=== PATIENT | female | born 1940 | race African-American/Black ===

== ENCOUNTER 2024-06-28 11:12 | Inpatient (IN) | payer OTHER ==
--- OUTSIDE RECORDS SUMMARY | 2024-06-28 11:14 | XMS REPORT | Continuity of Care Document ---
Author Name Unknown Address [address] [place] [address] [facility] thconnect Address 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 Role Phone Kizzy Valdez Primary Care Physician [phone] Kizzy Valdez Attending Clinician Unavailable Doctor Unassigned, [place] Attending Clinician U navailable [email or web address]_S Attending Clinician UnavailMAKAYLA May Attending Clinician Unavailable Lab, Ang - Db Attending Clinician Unavailable Makayla Patel MD Attending Clinician Kizzy Valdez Attending Clinician [phone] Diana Trujillo MD Attending Clinician [phone] DIANA TRUJILLO Attending Clinician Unavailable [email or web address]_Bekah_S Admitting Clinician UnavailMAKAYLA May Admitting Clinician Unavailable Payers Payer Name Policy Type Policy Number Effective Date Expirati on Date Source [facility] Medicare Advantage 53 [id number] [facility] Problems Condition Name Condition Details Condition Category Status Onset Date Resolution Date Last Treatment Date Treating Clinician Comments Source 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 08-21 00:00: 00 [facility] HTN (hypertens ion), benign HTN (hypertens ion), benign Disease Active 2020-06 00:00: 00 [facility] [id number] Low back pain, unspecifie d back pain laterality , unspecifie d chronicity , with sciatica presence unspecifie d Problem [facility] [id number] Essential hypertensi on Problem [facility] [id number] Hyperchole sterolemia Problem [facility] [id number] Low TSH level Problem [facility] [id number] Memory changes Problem [facility] [id number] Subcutaneo us nodule Problem [facility] [id number] Urinary incontinen ce in female Problem [facility] [id number] Prediabete s Problem [facility] [id number] Abnormal renal function test Problem [facility] Obesity Obesity (BMI 30-39.9) Problem [facility] [id number] Hyperthyro idism Problem [facility] [id number] Irregular heart beat Problem [facility] [id number] Abnormal kidney function Problem [facility] Eruptive melanocyti c nevi Skin moles Problem Commo n [facility] Arthritis Arthritis Problem Comm on [facility] Allergies, Adverse Reactions, Alerts Allergy Name Allergy Type Status Severity Reaction(s) Onset Date Inactive Date Treating Clinician Comments Source 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 [facility] NO KNOWN ALLERGIE S Drug Class Active [facility] Social History Social Habit Start Date Stop Date Quantity Comments Source [facility] of [facility] Use [facility] Sex Assigned At [facility] Exposure to SARS-CoV-2 (event) 2021-11-18 00:00:00 2021-11-28 13:26:00 Not sure [facility] History of Social function 2021-05-16 00:00:00 2021-05-16 00:00:00 [facility] Smoking Status Start Date Stop Date Source Tobacco smoking consumption unknown [facility] Never Smoker [facility] Medications Ordered Medication Name Filled Medication Name Start Date Stop Date Current Medication? Ordering Clinician Indication Dosage Frequency Signature (SIG) Comments Components Source oxyBUTYnin Chloride 5 MG oxyBUTYnin Chloride 5 MG 2022-06 00:00: 00 No 1{table t} QD oxyBUTYnin Chloride 5 MG multivit-mi n/ferrous fumarate (MULTI VITAMIN ORAL) 2020-06 10:46: 21 Yes Take by mouth. [facility] losartan 50 mg tablet 2020-06 00:00: 00 Yes [facility] omeprazole 40 mg capsule 2020-06 00:00: 00 Yes [facility] hydroCHLORO thiazide 25 MG hydroCHLORO thiazide 25 MG No 1{table t_in_th e_morni ng} QD hydroCHLOR Othiazide 25 MG Fish Oil 435 MG Fish Oil 435 MG No 1{capsu le} QD Fish Oil 435 MG PreserVisio n AREDS PreserVisio n AREDS No PreserVisi on AREDS Stool Softener 100 MG Stool Softener 100 MG No 1{table t_as_ne eded} QD Stool Softener 100 MG Multivitami n - Multivitami n - No Multivitam in - Losartan Potassium 100 MG Losartan Potassium 100 MG No 1{table t} QD Losartan Potassium 100 MG dilTIAZem HCl ER Beads 300 MG dilTIAZem HCl ER Beads 300 MG No dilTIAZem HCl ER Beads 300 MG Glucosamine Chondroitin MSM - Glucosamine Chondroitin MSM - No Glucosamin e Chondroiti n MSM - Immunizations Ordered Immunization Name Filled Immunization Name Date Status Comments Source Moderna COVID-19 Vaccine Moderna COVID-19 Vaccine Unknown Completed [facility] Moderna COVID-19 Vaccine Moderna COVID-19 Vaccine Unknown Completed [facility] Moderna COVID-19 Vaccine Moderna COVID-19 Vaccine Unknown Completed [facility] Moderna COVID-19 Vaccine Moderna COVID-19 Vaccine Unknown Completed [facility] Vital Signs Vital Name Observation Time Observation Value Comments S ource height 2024-02-09 14:00:00 66.25 [in_i] Com [facility] weight 2024-02-09 14:00:00 185.4 [lb_av] Co [facility] temperature 2024-02-09 14:00:00 97.4 [degF] Com [facility] bmi 2024-02-09 14:00:00 29.7 kg/m2 Commo n [facility] oximetry 2024-02-09 14:00:00 98 % Commo n [facility] respiratory rate 2024-02-09 14:00:00 16 /min [facility] blood pressure systolic 2024-02-09 14:00:00 136 mm[Hg] [facility] blood pressure diastolic 2024-02-09 14:00:00 82 mm[Hg] [facility] blood pressure systolic 2024-02-09 14:00:00 136 mm[Hg] [facility] blood pressure diastolic 2024-02-09 14:00:00 82 mm[Hg] [facility] height 2024-02-09 14:00:00 66.25 [in_i] Com [facility] weight 2024-02-09 14:00:00 185.4 [lb_av] Co [facility] temperature 2024-02-09 14:00:00 97.4 [degF] Com [facility] bmi 2024-02-09 14:00:00 29.7 kg/m2 Commo n [facility] oximetry 2024-02-09 14:00:00 98 % Commo n [facility] respiratory rate 2024-02-09 14:00:00 16 /min [facility] height 2023-10-09 14:20:00 66.25 [in_i] Com [facility] weight 2023-10-09 14:20:00 198.6 [lb_av] Co mmon [facility] temperature 2023-10-09 14:20:00 97.5 [degF] Com [facility] bmi 2023-10-09 14:20:00 31.81 kg/m2 Comm on [facility] oximetry 2023-10-09 14:20:00 97 % Commo n [facility] respiratory rate 2023-10-09 14:20:00 15 /min [facility] blood pressure systolic 2023-10-09 14:20:00 129 mm[Hg] [facility] blood pressure diastolic 2023-10-09 14:20:00 78 mm[Hg] [facility] height 2023-06-09 13:20:00 66.25 [in_i] Com [facility] weight 2023-06-09 13:20:00 198.8 [lb_av] Co [facility] temperature 2023-06-09 13:20:00 99.7 [degF] Com [facility] bmi 2023-06-09 13:20:00 31.84 kg/m2 Comm on [facility] oximetry 2023-06-09 13:20:00 98 % Commo n [facility] respiratory rate 2023-06-09 13:20:00 16 /min [facility] blood pressure systolic 2023-06-09 13:20:00 136 mm[Hg] [facility] blood pressure diastolic 2023-06-09 13:20:00 72 mm[Hg] [facility] Systolic blood pressure 2021-11-28 19:06:00 145 mm[Hg] [facility] Diastolic blood pressure 2021-11-28 19:06:00 84 mm[Hg] [facility] Heart rate 2021-11-28 19:06:00 86 /min [facility] Body weight 2021-11-28 19:06:00 105.688 kg [facility] BMI 2021-11-28 19:06:00 36.49 kg/m2 [facility] Oxygen saturation in Arterial blood by Pulse oximetry 2021-11-28 19:06:00 97 /min [facility] Procedures Procedure Date / Time Performed Performing Clinicia n Source MEDICAL RELEASE/CLEARANCE FORMS 2021-10-26 05:01:00 Doctor Unassigned, [place] [facility] Encounters Start Date/Time End Date/Time Encounter Type Admission Type Attending Clinicians Care Facility Care Department Encounter ID Source 2023-06-09 13:27:02 Outpatient Kizzy Valdez [facility] [id number] [facility] 2024-02-25 00:00:00 2024-02-25 00:00:00 (TEL) [facility] [id number] [facility] 2024-02-24 00:00:00 2024-02-24 00:00:00 [facility] [id number] [facility] 2024-02-19 00:00:00 2024-02-19 00:00:00 (TEL) [facility] [id number] [facility] 2024-02-09 00:00:00 2024-02-09 00:00:00 OFFICE VISIT ESTAB PT LEVEL 4 [facility] [id number] [facility] 2024-02-09 00:00:00 2024-02-09 00:00:00 [facility] [id number] [facility] 2023-10-13 00:00:00 2023-11-15 18:09:05 Patient Secure Msg Doctor Unassigned, [place] [facility] [id number] 350.1.13.10 4.2.7.2.686 [id number] [facility] 2023-11-07 00:00:00 2023-11-07 00:00:00 (TEL) 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, [facility] 1.2.840.114 350.1.13.10 4.2.7.2.686 [id number] [facility] 2021-11-28 13:30:00 2021-11-28 14:12:30 [facility] 1.2.840.114 350.1.13.10 4.2.7.2.686 [id number] [facility] 2021-11-28 13:30:00 2021-11-28 14:12:30 Outpatient [facility] [id number] [facility] 2021-11-28 14:00:00 2021-11-28 14:00:00 Outpatient [facility] [id number] [facility] 2021-11-28 13:30:00 2021-11-28 13:30:00 Outpatient [facility] [id number] [facility] 2021-11-22 00:00:00 2021-11-22 00:00:00 [facility] 1.840.114 350.1.13.10 4.2.7.2.686 [id number] [facility] 2021-11-07 00:00:00 2021-11-07 00:00:00 Orders Only Doctor Unassigned, [place] [facility] 1.2840.114 350.1.13.10 4.2.7.2.686 [id number] [facility] 2021-11-06 00:00:00 2021-11-06 00:00:00 Telephone Patel [facility] BETTY?[facility] 1.114 350.1.13.10 4.2.7.2.686 [id number] [facility] 2021-10-26 00:00:00 2021-10-26 00:00:00 Orders Only Doctor Unassigned, [place] [facility] 1.20.114 350.1.13.10 4.2.7.2.686 [id number] [facility] 2021-10-24 00:00:00 2021-10-24 00:00:00 Telephone Patel [facility] BETTY?[facility] 1.84.114 350.1.13.10 4.2.7.2.686 [id number] [facility] 2021-10-22 00:00:00 2021-10-22 00:00:00 Telephone Patel [facility] BETTY?[facility] 1.0.114 350.1.13.10 4.2.7.2.686 [id number] [facility] 2021-10-12 13:45:00 2021-10-12 14:00:00 Front Worker Visit Lab, Diana [facility] 1.20.114 350.1.13.10 4.2.7.2.686 [id number] [facility] 2021-10-12 13:45:00 2021-10-12 13:45:00 Outpatient R TRUJILLO DIANA [facility] [id number] [facility] 2021-10-01 00:00:00 2021-10-01 00:00:00 [facility] 1..840.114 350.1.13.10 4.2.7.2.686 [id number] [facility] 2021-09-26 00:00:00 2021-09-26 00:00:00 Orders Only Doctor Unassigned, [place] [facility] 1..840.114 350.1.13.10 4.2.7.2.686 [id number] [facility] 2021-09-21 00:00:00 2021-09-21 00:00:00 [facility]phone [facility] 1..840.114 350.1.13.10 4.2.7.2.686 [id number] [facility] 2021-08-28 13:51:13 2021-08-28 23:59:00 Outpatient [facility] [id number] [facility] 2021-08-28 13:51:13 2021-08-28 23:59:00 Hospital Encounter Angel [facility] 1..840.114 350.1.13.10 4.2.7.2.686 [id number] [facility] 2021-08-27 16:35:31 2021-08-27 23:59:00 Outpatient [facility] [id number] [facility] 2021-08-27 16:30:00 2021-08-27 23:59:00 Hospital Encounter Angel [facility] 1.2.840.114 350.1.13.10 4.2.7.2.686 [id number] [facility] 2021-08-27 00:00:00 2021-08-27 00:00:00 Orders Only Doctor Unassigned, [place] [facility] 1.2.840.114 350.1.13.10 4.2.7.2.686 [id number] [facility] 2021-08-21 13:00:00 2021-08-21 13:47:45 Outpatient [facility] [id number] [facility] 2021-08-15 10:00:00 2021-08-15 10:00:00 Outpatient [facility] [id number] [facility] 2021-08-10 11:55:46 2021-08-10 23:59:00 Hospital Encounter [facility] 1.2840.114 350.1.13.10 4.2.7.2.686 [id number] [facility] 2021-08-10 11:54:36 2021-08-10 11:54:36 Outpatient [facility] [id number] [facility] 2021-08-10 11:54:36 2021-08-10 11:54:36 Hospital Encounter [facility] 1.2840.114 350.1.13.10 4.2.7.2.686 [id number] [facility] 2021-08-09 12:00:00 2021-08-09 23:59:00 Hospital Encounter [facility] 1.2.840.114 350.1.13.10 4.2.7.2.686 [id number] [facility] 2021-06-25 00:00:00 2021-06-25 00:00:00 Telephone Angel [facility] 1.84.114 350.1.13.10 4.2.7.2.686 [id number] [facility] 2021-05-24 09:30:41 2021-05-24 09:45:41 Front Worker Visit Lab, [facility] 1.840.114 350.1.13.10 4.2.7.2.686 [id number] [facility] 2021-05-24 09:30:00 2021-05-24 09:30:00 [facility] [id number] [facility] 2021-05-16 10:05:44 2021-05-16 11:32:14 Office Visit [facility] 1.840.114 350.1.13.10 4.2.7.2.686 [id number] [facility] 2021-05-16 09:30:00 2021-05-16 11:32:14 [facility] [id number] [facility] 2021-05-16 00:00:00 2021-05-16 00:00:00 Orders Only Doctor Unassigned, [place] [facility] 1.840.114 350.1.13.10 4.2.7.2.686 [id number] [facility] Results Test Description Test Time Test Comments Results Result Co mments Source
--- NOTE | 2024-06-28 12:05 | RAD REPORT ---
EXAMINATION: ONE VIEW CHEST XR CLINICAL INDICATION: Female, 84 years old.,DYSPNEA TECHNIQUE: Frontal chest projection is submitted. Examination is limited by patient positioning and t echnique. COMPARISON: 04/15/2023 FINDINGS: Near complete opacification of the right hemithorax with residual small region of variation in the up per lung medially. Presumed large right effusion. There is perihilar opacification as well, and an underlying mass cannot be entirely excluded. Mild mass effect with slight leftward tracheal deviation . No pneumothorax or sizable left-sided effusion. The heart is normal in size. Mediastinal contours are otherwise unremarkable. IMPRESSION: Near complete right hemithorax opacification, suggesting a large effusion. Underlying right perihilar mass or airspace opacification is also suggested.
[2024-06-28 12:08] LABS: Absolute Basophils 0.1 K/uL (0-0.5); Absolute Eosinophils 0.1 K/uL (0-0.5); Absolute Lymphocytes (CBC) 1.2 K/uL (0.7-4.9); Absolute Monocytes 0.4 K/uL (0.1-1.3); Absolute Neutrophil 4.8 K/uL (1.8-8.0); Basophils % 0.8 % (0-1.3); Eosinophils % 1.4 % (0-4.4); Hematocrit 38.2 % (36.0-45.0); Lymphocytes % 18.6 % (15.3-44.8); MCH 32.2 pg (27.0-35.0); MCHC 33.9 g/dL (32.0-36.0); MCV 94.8 fL (80-100); MPV 6.6 fL (7.6-11.3); Monocytes % 6.8 % (3.3-12.3); Neutrophils % 72.4 % (41.7-73.7); Nucleated Red Blood Cells % 0.1 % (0-0); Platelets 441 thou/uL (152-406); RBC Red Blood Cell Count 4.03 M/uL (3.86-4.86); Red Cell Distribution Width 13.5 % (12.1-15.2)
[2024-06-28 12:15] LABS: D-Dimer 3.847 FEUug/mL (0-0.500); PT Prothrombin Time 12.7 SECONDS (9.4-12.5); Protime INR 1.14
[2024-06-28 12:35] LABS: Albumin 3.3 g/dL (3.4-5.0); Albumin/Globulin Ratio 0.8 (1.1-1.8); Anion Gap 10.5 mEq/L (5.0-15.0); Bilirubin Direct 0.2 mg/dL (0-0.2); Bilirubin Indirect, Calculated 0.4 mg/dL (0.2-0.8); Bilirubin Total 0.6 mg/dL (0.2-1.0); Globulin 4.2 g/dL (2.3-3.5); Magnesium 2.1 mg/dL (1.6-2.4); Potassium 3.5 mEq/L (3.5-5.1); Protein, Total 7.5 g/dL (6.4-8.2); Troponin High Sensitivity 7.7 pg/mL (<58.9)
--- NOTE | 2024-06-28 12:55 | RAD REPORT ---
EXAMINATION: US bilateral LOWER EXTREMITY VENOUS DOPPLER CLINICAL INDICATION: Leg swelling TECHNIQUE: Sonographic evaluation of the veins of the lower extremity bilaterally formed.Grayscale, c olor and spectral analysis performed on all vessels COMPARISON: No prior exam. FINDINGS: The common femoral, superficial femoral, greater saphenous, popliteal and posterior tibial veins bila terally are compressible and demonstrate augmentation. Doppler demonstrates good flow. IMPRESSION: No evidence of deep venous thrombosis involving either lower extremity
--- NOTE | 2024-06-28 13:20 | RAD REPORT ---
EXAMINATION: CTA CHEST PE CLINICAL INDICATION: Chest pain TECHNIQUE: 100 cc 370 Isovue administered intravenously. This examination was performed according to an angiographic protocol with 3D post-processing. This involves 3D reconstructions, MIPs, volume rendered images and/or shaded surface rendering. One or more of the following dose reduction techniqu es were used: Automated exposure control, adjustment of the mA and/or kV according to patient size, and/or iterative reconstruction. Unless otherwise specified, incidental findings do not require dedic ated imaging follow-up. [id number]. COMPARISON: No prior exam. FINDINGS: A pulmonary embolus is not seen. An aortic aneurysm not noted. Very large right pleural effusion. No pericardial effusion. Passive atelectasis right lung. 4 cm soft tissue structure abuts the right aspect of the mediastinum. Multiple left lung nodules. They vary in size 1 to 10 mm. Vague low-density areas within the liver. 3 cm lucency vertebral body lower thoracic spine Lucency bilateral ribs Small pericardiac nodes. IMPRESSION: No evidence of a pulmonary embolism Very large right pleural effusion Left pulmonary nodules likely metastases. 4 cm soft tissue structure abutting right aspect of the mediastinum suspicious for neoplasm. 3 cm lytic lesion lower thoracic spine likely a metastasis. Lytic lesions bilateral ribs likely metastases Vague low-density areas within the liver incompletely evaluated on this exam likely metastases
--- NOTE | 2024-06-28 13:26 | RAD REPORT ---
EXAMINATION: CT PELVIS WITHOUT CONTRAST CLINICAL INDICATION: Pelvic pain TECHNIQUE: CT pelvis was performed, without IV contrast, as per department protocol. Axial, sagittal and coronal reconstructions were obtained. One or more of the following dose reduction techniques were used: Automated exposure control, adjustment of the mA and/or kV according to patient size, and/ or iterative reconstruction. Unless otherwise specified, incidental findings do not require dedicated imaging follow-up. COMPARISON: No prior exam. FINDINGS: 3.5 cm lytic lesion superior left acetabulum. 2.1 cm destructive lesion left iliac crest. 8 mm lytic lesion subtrochanteric left femur. 3 cm lesion inferior aspect right lobe of the liver. 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
--- NOTE | 2024-06-28 14:06 | EDPHYS ---
Physician Documentation [facility] Name: Jewell Abreu Age: 84 yrs Sex: Female : 1940 Arrival Date: 06/28/2024 Time: 11:12 Bed 7 Private MD: ED Physician Carleen Rhoades HPI: 06/28 11:41 This 84 yrs old Black Female presents to ER via Wheelchair with complaints of Shortness sb4 Of Breath. 11:41 shortness of breath x 2 days. denies any cough or fever. reports associated ankle sb4 swelling. states that her ankles get swollen intermittently but it has been worse the past few days. denies any chest pain. denies any history of CHF. reports only a history of hypertension. denies any recent changes in her medications. Historical: - Allergies: 11:21 No Known Allergies; ss - PMHx: 11:21 Hypertension; ss - PSHx: 11:21 Hysterectomy; ss - Immunization history:: Adult Immunizations up to date. - Infectious Disease History:: Denies. - Social history:: Smoking status: Patient denies any tobacco usage or history of. ROS: 11:41 Constitutional: Negative for fever, chills, and weight loss, sb4 11:41 Cardiovascular: Positive for edema, 11:41 Respiratory: Positive for dyspnea on exertion, shortness of breath, 11:41 All other systems are negative, Exam: 11:41 Head/Face: Normocephalic, atraumatic. Eyes: Extra-ocular motions intact. Periorbital sb4 areas with no swelling, redness, or edema. ENT: Mucous membranes moist. Cardiovascular: Regular rate and rhythm with a normal S1 and S2. Respiratory: No increased work of breathing, no retractions or nasal flaring. Abdomen/GI: Soft, non-tender, no distension. Skin: Warm, dry with normal turgor. Normal color with no rashes, no lesions, and no evidence of cellulitis. 11:41 Constitutional: The patient appears in no acute distress, alert, awake, 11:41 Cardiovascular: Edema: ankle edema, that is mild, 12:10 Respiratory: the patient does not display signs of respiratory distress, Respirations: sb4 normal, Breath sounds: decreased breath sounds, that are moderate, are heard in the right posterior upper lobe, right posterior middle lobe and right posterior lower lobe, left side clear, Vital Signs: 11:17 BP 166 / 127; Pulse 109; Resp 18; Temp 98(O); Pulse Ox 96% ; Height 5 ft. 7 in. ; ss 11:22 BP 157 / 104; ss 12:04 BP 150 / 95; Pulse 98; Resp 18; Pulse Ox 95% on R/A; ld1 12:37 BP 147 / 84; ld1 17:01 BP 181 / 96; Pulse 65; Resp 15; Pulse Ox 93% ; cm10 17:01 Per provider okay to go upstairs. cm10 MDM: 11:17 Medical Screening Exam initiated sb4 12:09 Independent interpretation of the following test(s) in the Emergency Department X-Ray: sb4 My interpretation is My interpretation of the chest x-ray image is extensive right pleural effusion. 14:07 Data reviewed: vital signs, nurses notes, lab test result(s), EKG, radiologic studies, sb4 I have discussed the patient's presentation/case with the attending Emergency Department Physician; and as a result, I will admit patient. Consideration of Admission/Observation Patient was admitted/placed on observation. Management of patient was discussed with the following: Freight Handler: Dr. Hernandez, agrees to consult. 06/28 11:39 Order name: Basic Metabolic Panel; Complete Time: 12:36 4 06/28 11:39 Order name: CBC with Diff; Complete Time: 12:11 4 06/28 11:39 Order name: D-Dimer; Complete Time: 12:15 4 06/28 11:39 Order name: LFT's; Complete Time: 12:36 4 06/28 11:39 Order name: Magnesium; Complete Time: 12:36 sb4 06/28 11:39 Order name: NT PRO-BNP; Complete Time: 12:36 sb4 06/28 11:39 Order name: PT-INR; Complete Time: 12:15 sb4 06/28 11:39 Order name: Troponin HS; Complete Time: 12:36 4 06/28 11:39 Order name: XRAY Chest (1 view); Complete Time: 12:06 sb4 06/28 11:39 Order name: Extrem Venous W Compression Pablo US; Complete Time: 12:57 sb4 06/28 12:16 Order name: Chest For PE Angio CT; Complete Time: 13:27 sb4 06/28 12:39 Order name: Pelvis Wo Cont CT; Complete Time: 13:27 sb4 06/28 11:39 Order name: EKG; Complete Time: 11:40 sb4 06/28 11:39 Order name: Cardiac monitoring; Complete Time: 12:04 sb4 06/28 11:39 Order name: EKG - Nurse/Tech; Complete Time: 12:04 sb4 06/28 11:39 Order name: IV Saline Lock; Complete Time: 11:57 sb4 06/28 11:39 Order name: Labs collected and sent; Complete Time: 11:57 sb4 06/28 11:39 Order name: O2 Per Protocol; Complete Time: 11:52 sb4 06/28 11:39 Order name: O2 Sat Monitoring; Complete Time: :52 sb4 EC:01 Rate is 93 beats/min. Rhythm is regular, Normal Sinus Rhythm. VT interval is normal at sb4 154 msec. QRS interval is normal at 90 msec. QT interval is normal at 342 msec. No Q waves. T waves are Normal. No ST changes noted. Clinical impression: Normal ECG. Interpreted by me. Reviewed by me. Administered Medications: No medications were administered Disposition Summary: 06/28/24 14:05 Hospitalization Ordered Notes: Hospitalization Status: Inpatient Admission sb4 Provider: Moises Mcarthur Location: Telemetry/[facility] (Inpatient) sb4 Condition: Fair sb4 Problem: new sb4 Symptoms: are unchanged sb4 Bed/Room Type: Standard sb4 Room Assignment: 404(06/28/24 15:58) bd Diagnosis - Malignant pleural effusion sb4 Forms: - Medication Reconciliation Form sb4 - SBAR form sb4 - Leadership Thank You Letter sb4 Addendum: 07/01/2024 19:59 Co-signature as Attending Physician, Carleen Rhoades MD I reviewed the patient's care g b1 provided by the Advanced Practice Provider and agree with the diagnosis and treatment plan. Signatures: Dispatcher [employer] EDPaula Sosa Shelby, RN RN ss Ivelisse Pierre RN RN ld1 Claudia Ley, PA-C PASujitC sb4 Carleen Rhoades MD MD gb1 Corrections: (The following items were deleted from the chart) 06/28 12:11 11:41 Head/Face: Normocephalic, atraumatic. Eyes: Extra-ocular motions intact. sb4 Periorbital areas with no swelling, redness, or edema. ENT: Mucous membranes moist. Cardiovascular: Regular rate and rhythm with a normal S1 and S2. Respiratory: No increased work of breathing, no retractions or nasal flaring. Abdomen/GI: Soft, non-tender, no distension. Skin: Warm, dry with normal turgor. Normal color with no rashes, no lesions, and no evidence of cellulitis. sb4 15:58 14:05 sb4 bd
--- NOTE | 2024-06-28 14:06 | ER ---
Nurse's Notes [facility] Name: Jewell Abreu Age: 84 yrs Sex: Female : 1940 Arrival Date: 06/28/2024 Time: 11:12 Bed 7 Private MD: Diagnosis: Malignant pleural effusion Presentation: 06/28 11:17 Chief complaint: Patient states: SOB that began 2 days ago. Coronavirus screen: Client ss denies travel out of the [place] in the last 14 days. Ebola Screen: Patient denies exposure to infectious person. Patient denies travel to an Ebola-affected area in the 21 days before illness onset. Initial Sepsis Screen: Does the patient meet any 2 criteria? HR > 90 bpm. No. Patient's initial sepsis screen is negative. Does the patient have a suspected source of infection? No. Patient's initial sepsis screen is negative. Risk Assessment: Do you want to hurt yourself or someone else? Patient reports no desire to harm self or others. Onset of symptoms was June 26, 2024. 11:17 Method Of Arrival: Wheelchair ss 11:17 Acuity: BULL 3 ss Triage Assessment: 17:04 General: Appears in no apparent distress. uncomfortable, Behavior is calm, cooperative, cm10 appropriate for age. Respiratory: Onset: The symptoms/episode began/occurred at an unknown time. the patient has mild shortness of breath. Historical: - Allergies: 11:21 No Known Allergies; ss - PMHx: 11:21 Hypertension; ss - PSHx: 11:21 Hysterectomy; ss - Immunization history:: Adult Immunizations up to date. - Infectious Disease History:: Denies. - Social history:: Smoking status: Patient denies any tobacco usage or history of. Screenin:04 [facility] ED Fall Risk Assessment (Adult) History of falling in the last 3 months, ld1 including since admission Yes- single mechanical fall (1 pt) Confusion or Disorientation No (0 pts) Intoxicated or Sedated No (0 pts) Impaired Gait No (0 pts) Mobility Assist Device Used No (0 pt) Altered Elimination No (0 pt) Score/Fall Risk Level 0 - 2 = Low Risk Oriented to surroundings, Maintained a safe environment, Educated pt \T\ family on fall prevention, incl call for assistance when getting out of bed, Assessed \T\ reinforced patient's understanding of fall precautions, Provided non-skid footwear, Hourly rounding (assess needs \T\ fall precautionary measures) done, Used ambulatory aids as needed (educated on \T\ assisted with), Used gait belt as appropriate. Abuse screen: Denies threats or abuse. Denies injuries from another. Nutritional screening: No deficits noted. Tuberculosis screening: No symptoms or risk factors identified. Assessment: 12:04 General: Appears in no apparent distress. comfortable, Behavior is calm, cooperative, ld1 appropriate for age. Pain: Denies pain. Neuro: Level of Consciousness is awake, alert, obeys commands, Oriented to person, place, time, situation. Cardiovascular: Capillary refill < 3 seconds Patient's skin is warm and dry. Rhythm is sinus rhythm. Respiratory: Airway is patent Respiratory effort is even, unlabored, Breath sounds are clear bilaterally. Respiratory: Reports shortness of breath at rest on exertion. GI: Abdomen is round non-distended. : No signs and/or symptoms were reported regarding the genitourinary system. EENT: No signs and/or symptoms were reported regarding the EENT system. Derm: No signs and/or symptoms reported regarding the dermatologic system. Musculoskeletal: No signs and/or symptoms reported regarding the musculoskeletal system. Vital Signs: 11:17 BP 166 / 127; Pulse 109; Resp 18; Temp 98(O); Pulse Ox 96% ; Height 5 ft. 7 in. ; ss 11:22 BP 157 / 104; ss 12:04 BP 150 / 95; Pulse 98; Resp 18; Pulse Ox 95% on R/A; ld1 12:37 BP 147 / 84; ld1 17:01 BP 181 / 96; Pulse 65; Resp 15; Pulse Ox 93% ; cm10 17:01 Per provider okay to go upstairs. cm10 ED Course: 11:14 Patient arrived in ED. im 11:14 Claudia Ley PA-C is PHCP. sb4 11:14 Carleen Rhoades MD is Attending Physician. sb4 11:21 Triage completed. ss 11:45 Erica Kearney, AURORA is Primary Nurse. cm10 11:56 Initial lab(s) drawn, by me, sent to lab. Inserted saline lock: 20 gauge in left zm antecubital area, using aseptic technique. Blood collected. Flushed with 10 mL NS. 11:57 Basic Metabolic Panel Sent. zm 11:57 CBC with Diff Sent. zm 11:57 D-Dimer Sent. zm 11:57 LFT's Sent. zm 11:57 Magnesium Sent. zm 11:57 NT PRO-BNP Sent. zm 11:57 PT-INR Sent. zm 11:57 Troponin HS Sent. zm 12:00 XRAY Chest (1 view) In Process Unspecified. EDMS 12:04 No provider procedures requiring assistance completed. ld1 12:04 Patient has correct armband on for positive identification. Placed in gown. Bed in low ld1 position. Call light in reach. Side rails up X2. teletypesetter monitor on. Pulse ox on. NIBP on. Door closed. Noise minimized. 12:45 Extrem Venous W Compression Pablo US In Process Unspecified. EDMS 12:58 Chest For PE Angio CT In Process Unspecified. EDMS 12:[address] In Process Unspecified. EDMS 14:05 Moises Mcarthur MD is Hospitalizing Provider. sb4 17:02 Patient admitted, IV remains in place. cm10 17:02 Provided Education on: need foradmit. cm10 17:04 Arm band placed on right wrist. cm10 Administered Medications: No medications were administered Medication: 12:04 VIS not applicable for this client. ld1 Outcome: 14:05 Decision to Hospitalize by Provider. sb4 17:02 Admitted to Tele accompanied by tech, via wheelchair, room 404, cm10 17:02 Condition: stable 17:02 Instructed on the need for admit, 17:04 Patient left the ED. cm10 Signatures: Dispatcher [employer] EDMS Maryann Alvarado, Ivelisse Calhoun RN, RN RN ld1 Sharita Kearney Sophia, PA-C PA-C sb4 Catina Coleman Clarissa RN RN cm10
--- NOTE | 2024-06-28 15:48 | P.HP ---
Certification for Inpatient Patient admitted to: Inpatient With expected LOS: >2 Midnights Practitioner: I am a practitioner with admitting privileges, knowledge of patient current condition, hospital course, and medical plan of care. Services: Services provided to patient in accordance with Admission requirements found in Title 42 Section 412.3 of the Code of Federal Regulations Patient History Date of Service: 06/28/24 Reason for admission: R pleural effusion History of Present Illness: 84yo F, PMH: HTN Presents to ED with 2 days of shortness of breath, ~3-4 days of left hip pain. Friend at bedside reports she has unintentionally lost ~40 lbs or so in the last 6 months. She otherwise denies any other symptoms. No chest pain/pressure, no night sweats, no cough, no fever/chills, no difficulty swallowing, no abdominal pain, no change in urinary/bowel habits. Workup in ED with imaging concerning/consistent for metastatic cancer, unknown primary. Significantly large R sided pleural effusion, mediastinal mass, masses/lesions in lower thoracic spine, liver, left iliac crest/acetabulum. ER spoke with general surgeon, Dr. Hernandez who will consult and planning for ple urx catheter placement in AM. She reports shortness of breath with activity. Pain at left hip with movement. Went to urgent care yesterday, x-ray done of left hip, and noted arthritic changes. She had some labored respirations at that time and was recommended to go to hospital for further evaluation. Allergies No Known Allergies Allergy (Unverified 06/28/24 16:38) Home medications list reviewed: Yes (Losartan, HCTZ, cardizem) - Past Medical/Surgical History -: HTN -: hysterectomy - Family History Family History: Reviewed- Non-Contributory - Family History Sister -: Cancer (breast) - Social History Smoking Status: Never smoker Alcohol use: No CD- Drugs: No Place of Residence: Home Review of Systems 10-point ROS is otherwise unremarkable Physical Examination - Physical Exam General: Alert, In no apparent distress, Oriented x3 HEENT: EOMI, Sclerae nonicteric Neck: Supple, No LAD Respiratory: Other (clear on left, diminished on right, nonlabored at rest, short of breath after speaking for a bit) Cardiovascular: Regular rate/rhythm, Edema (1+ bilateral lower extremities, L>R) Gastrointestinal: Soft and benign, Non-distended, No tenderness Musculoskeletal: No contractures Integumentary: No rashes, No significant lesion Neurological: Normal speech, Normal affect - Studies Laboratory Data (last 24 hrs) 06/28/24 06/28/24 06/28/24 11:52 11:52 11:52 WBC 6.60 Hgb 13.0 Hct 38.2 Plt Count 441 H PT 12.7 H INR 1.14 Sodium 141 Potassium 3.5 BUN 35 H Creatinine 1.32 H Glucose 110 H Magnesium 2.1 Total Bilirubin 0.6 AST 24 ALT 19 Alkaline Phosphatase 94 Assessment and Plan - Advance Directives Does patient have a Living Will: No Does patient have a Durable POA for Healthcare: No Physician Review Additional Text: Problem List Large R pleural effusion, suspect malignant effusion multiple masses/lesions concerning for metastatic cancer L hip pain secondary bony destructive lesions Hypertension General surgery consulted for pleurx placement tomorrow NPO after midnight send cytology/labs daughter updated over phone pain control oxygen as needed consult pulm repeat imaging after thoracentesis eval for possible lesion that can be biopsied pulmonary nodules, liver lesion, bony lesions, mediastinal mass unclear primary c-scope a few years ago was ok per report. yearly mammogram ok does not appear to be septic, no evidence of infection monitor BP, restart home meds if appropriate discussed code status - states full code for now, she will discuss with family Dispo: anticipate hospitalization ~3 days Time Spent Managing Pts Care (In Minutes): 75
[2024-06-28 17:40] VITALS: BMI 25.3
[2024-06-28] MEDS: PNEUMOCOCCAL VACCINE 0.5 ML IMVAC ONE (19:00)
[2024-06-28] MEDS ORDERED: MORPHINE 2 MG/ML SYR IV PRN (19:32)
[2024-06-28] MEDS ORDERED: ONDANSETRON 4 MG/2 ML VIAL IV PRN (19:32)
[2024-06-29 06:21] LABS: Absolute Eosinophils 0.2 K/uL (0-0.5); Absolute Lymphocytes (CBC) 1.3 K/uL (0.7-4.9); Absolute Monocytes 0.5 K/uL (0.1-1.3); Absolute Neutrophil 4.9 K/uL (1.8-8.0); Basophils % 0.7 % (0-1.3); Eosinophils % 2.2 % (0-4.4); Hematocrit 34.8 % (36.0-45.0); MCH 32.6 pg (27.0-35.0); MCHC 34.5 g/dL (32.0-36.0); MCV 94.4 fL (80-100); MPV 6.6 fL (7.6-11.3); Monocytes % 7.7 % (3.3-12.3); Neutrophils % 70.4 % (41.7-73.7); Nucleated Red Blood Cells % 0.1 % (0-0); Platelets 401 thou/uL (152-406); RBC Red Blood Cell Count 3.69 M/uL (3.86-4.86); Red Cell Distribution Width 13.4 % (12.1-15.2)
[2024-06-29 06:24] LABS: PT Prothrombin Time 12.8 SECONDS (9.4-12.5); PTT, Activated Partial Thromb 32.3 SECONDS (24.3-36.9); Protime INR 1.15
[2024-06-29 06:51] LABS: Albumin 3.1 g/dL (3.4-5.0); Albumin/Globulin Ratio 0.8 (1.1-1.8); Anion Gap 8.6 mEq/L (5.0-15.0); Bilirubin Total 0.6 mg/dL (0.2-1.0); Globulin 3.9 g/dL (2.3-3.5); Potassium 3.6 mEq/L (3.5-5.1)
--- NOTE | 2024-06-29 08:10 | P.CNS ---
Date of Consult: 06/29/24 Reason for Consult: Dyspnea large right-sided pleural effusion metastatic metastatic lung disea Chief Complaint: R pleural effusion History of Present Illness: Is 84 years of age was doing well started complaining of shortness of breath past 2 to 3 days was evaluated in the urgent care ended up here in the emergency room complaining of left-sided hip pain diagnosed with diffuse metastatic disease very large pleural effusion does not smoke no prior history of malignancy from hypertension she does not have any other problems Allergies No Known Allergies Allergy (Verified 06/28/24 20:40) Home Medications: Diclofenac Potassium [Lofena] 50 mg PO TID 06/28/24 Hydrochlorothiazide 25 mg PO DAILY 06/28/24 Latanoprost Ophth [Xalatan 0.005%*] 1 drop OPTH BEDTIME 06/28/24 Losartan Potassium [Cozaar] 100 mg PO DAILY 06/28/24 Vit A/Vit C/Vit E/Zinc/Copper [Preservision Areds Softgel] 1 cap PO BID 06/28/24 dilTIAZem HCL [Diltiazem 24Hr ER] 1 cap PO DAILY 06/28/24 - Past Medical/Surgical History Diabetic: No -: HTN -: hysterectomy - Family History Sister Medical History: Cancer (breast) - Social History Alcohol use: No CD- Drugs: No Caffeine use: Yes Place of Residence: Home Review of Systems General: Weakness Respiratory: Shortness of Breath Musculoskeletal: Other (Pain in the left hip joint) Physical Examination Temp Pulse Resp BP Pulse Ox 98.1 F 79 16 172/104 H 95 06/29/24 08:00 06/29/24 08:00 06/29/24 08:00 06/29/24 08:00 06/29/24 08:00 General: Alert, Oriented x3 Respiratory: Diminished (Initially on the left side) Cardiovascular: No edema, Regular rate/rhythm, Normal S1 S2 Laboratory Data (last 24 hrs) 06/28/24 06/28/24 06/28/24 11:52 11:52 11:52 WBC 6.60 Hgb 13.0 Hct 38.2 Plt Count 441 H PT 12.7 H INR 1.14 Sodium 141 Potassium 3.5 BUN 35 H Creatinine 1.32 H Glucose 110 H Magnesium 2.1 Total Bilirubin 0.6 AST 24 ALT 19 Alkaline Phosphatase 94 - Problems (1) Pleural effusion Current Visit: Yes Status: Acute Plan: Patient is 84 years of age admitted with diffuse metastatic disease unknown primary has large pleural effusion with placement of Pleurx catheter most likely malignant labs chemistries reviewed will check with radiology if we can biopsy liver lesion for a better diagnosis observe pulmonary unremarkable his blood pressure is elevated not taking her blood pressure pills
[2024-06-29] MEDS: LIDOCAINE HCL/EPINEPHRINE 20 ML MDV ONE (09:24)
[2024-06-29] MEDS: Ringers Lactate 1,000 ML IV ONE (10:53)
--- NOTE | 2024-06-29 11:39 | RAD REPORT ---
EXAMINATION: Ultrasound of the liver CLINICAL HISTORY: Evaluate for possible biopsy Liver Ultrasound COMPARISON: CT June 28, 2024 FINDINGS: There are several hepatic target lesions. The largest lies within the right lobe measuring 4.4 cm. IMPRESSION: Multiple hepatic lesions likely metastases. This would be amenable to a percutaneous biopsy.
[2024-06-29] MEDS ORDERED: propofoL 200 MG/20 ML VIAL IV ONE (12:04)
[2024-06-29] MEDS ORDERED: LIDOCAINE 2% MPF 5 ML VIAL ONE (12:04)
[2024-06-29] MEDS ORDERED: FENTANYL CITR 100 MCG/2 ML ONE (12:04)
[2024-06-29] MEDS ORDERED: ONDANSETRON 4 MG/2 ML VIAL ONE (12:04)
[2024-06-29] MEDS: CEFAZOLIN SODIUM 1 GM/VIAL ONE (12:35)
[2024-06-29] MEDS ORDERED: dexAMETHasone 10 MG/ML VIAL ONE (13:00)
--- NOTE | 2024-06-29 13:33 | P.OP ---
Preoperative diagnosis: RIGHT Pleural Effusion Postoperative diagnosis: RIGHT Pleural Effusion Primary procedure: Placement of RIGHT Pleur-X Tunneled Thoracic Catheter Anesthesia: GETA + Local Estimated blood loss: <1cc Specimen: Pleural Fluid Findings: Straw Colored Pleural Fluid 1.1 liters removed Complications: None Drain(s): Other (Pleur X Catheter) Transferred to: Recovery Room Condition: Good
--- NOTE | 2024-06-29 14:25 | RAD REPORT ---
EXAMINATION: ONE VIEW CHEST XR CLINICAL INDICATION: S/P PLEUR X CATH TECHNIQUE: Frontal chest projection is submitted. Examination is limited by patient positioning and t echnique. COMPARISON: 06/28/2024 FINDINGS: Small bore right-sided pleural catheter is in place. There has been mild to moderate reduction in the size of the right pleural effusion. The left lung is grossly clear. The heart is mildly prominent.
[2024-06-29] MEDS ORDERED: DILTIAZEM HCL 300 MG PO SCH (16:57)
--- NOTE | 2024-06-29 17:08 | P.PN ---
Subjective Date of Service: 06/29/24 Chief Complaint: R pleural effusion Patient reports right hip pain with walking. She denies any loss of appetite. Status post Pleurx catheter placement today, about 1.1 L of straw-colored fluid drained. She reports significant improvement in her shortness of breath. Patient denies any chest pain or cough. No recorded fever. Physical Examination - Vital Signs Temperature: 98.7 F Blood Pressure: 174/81 Pulse: 88 Respirations: 20 Pulse Ox (%): 94 Assessment And Plan - Plan Physical examination General: Alert and oriented x3, NAD, HEENT: Conjunctiva not pale, anicteric sclera Neck: Supple, no elevated JVD Heart: Heart sounds 1 and 2 normal, regular rhythm, normal rate, no pedal edema Lungs: Bilateral crackles, diminished breath sounds on the left, no rhonchi. Right Pleurx catheter in place. Abdomen: Soft, nondistended, nontender, normal bowel sounds. Extremities: No tenderness, no deformity Skin: Normal skin turgor, no rash, no nodules or ulcers. Neuro: No focal motor deficit. Normal speech. Psychiatry: Normal mood, no agitation. 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 Origin of cancer is unknown. Pleural fluid sent for cytology. Pleural fluid biochemistry and cell count are pending. Analgesics as needed Diet as tolerated. Goals of care discussed. Patient yet to decide whether she would want to move ahead with biopsy if pleural fluid cytology is nondiagnostic or opt for hospice. Diet as tolerated. Left hip pain Bony metastasis Analgesics as needed. Hypertension Patient with significantly elevated BP. Resume home antihypertensives. Hydralazine as needed. DVT prophylaxis: Lovenox. Advance directive: Full code for now.
[2024-06-29] MEDS: HYDRALAZINE HCL 20 MG/ML VIAL IV PRN (17:32)
[2024-06-29] MEDS ORDERED: HOME MED 1 EA UNK (Vit A/Vit C/Vit E/Zinc/Copper [Preservision Areds Softgel] Capsule) PO SCH (21:00)
[2024-06-29] MEDS: LATANOPROST 0.005% 2.5ML OPTH *PT OWN MED OPTH SCH (21:00)
[2024-06-30 07:26] LABS: Absolute Lymphocytes (CBC) 1.4 K/uL (0.7-4.9); Absolute Monocytes 0.8 K/uL (0.1-1.3); Absolute Neutrophil 7.5 K/uL (1.8-8.0); Basophils % 0.4 % (0-1.3); Eosinophils % 0.1 % (0-4.4); Hematocrit 35.4 % (36.0-45.0); Lymphocytes % 14.7 % (15.3-44.8); MCH 32.2 pg (27.0-35.0); MCHC 33.8 g/dL (32.0-36.0); MCV 95.1 fL (80-100); Monocytes % 8.1 % (3.3-12.3); Neutrophils % 76.7 % (41.7-73.7); Nucleated Red Blood Cells % 0.1 % (0-0); Platelets 347 thou/uL (152-406); RBC Red Blood Cell Count 3.72 M/uL (3.86-4.86); Red Cell Distribution Width 13.4 % (12.1-15.2)
[2024-06-30] MEDS: LOSARTAN POTASSIUM 50 MG TABLET PO SCH (08:59)
[2024-06-30] MEDS: OCUVITE (VIT A,C & E/LUTEIN/MINERAL) TABLET PO SCH (08:59)
[2024-06-30] MEDS: ENOXAPARIN 40 MG/0.4 ML SQ SCH (08:59)
[2024-06-30] MEDS: DILTIAZEM HCL 180 MG SR CAP PO SCH (08:59)
--- NOTE | 2024-06-30 08:59 | RAD REPORT ---
EXAMINATION: ONE VIEW CHEST XR CLINICAL INDICATION: Female, 84 years old.,Pleural effusion TECHNIQUE: Frontal chest projection is submitted. Examination is limited by patient positioning and t echnique. COMPARISON: 06/29/2024 FINDINGS: Large right pleural effusion with underlying airspace opacification which may represent atelectasis, grossly stable, allowing for differences in positioning. Left lung remains clear. No pneumothorax. The heart is normal in size. Mediastinal contours are unremarkable. IMPRESSION: Stable large right pleural effusion with underlying airspace opacification. No other acute intrathora cic abnormalities.
[2024-06-30] MEDS: hydroCHLOROthiazide 25 MG TAB PO SCH (09:00)
[2024-06-30] MEDS ORDERED: HOME MED 1 EA UNK (Losartan Potassium [Cozaar] 100 MG Tablet) PO SCH (09:00)
[2024-06-30] MEDS ORDERED: HYDROCHLOROTHIAZIDE 50 MG PO SCH (09:00)
[2024-06-30] MEDS: DILTIAZEM HCL 120 MG SR CAP PO SCH (09:00)
[2024-06-30] MEDS ORDERED: DILTIAZEM HCL 300 MG SR CAP PO SCH (09:00)
[2024-06-30 09:55] LABS: Albumin 2.9 g/dL (3.4-5.0); Albumin/Globulin Ratio 0.7 (1.1-1.8); Anion Gap 7.7 mEq/L (5.0-15.0); Bilirubin Total 0.5 mg/dL (0.2-1.0); Potassium 3.7 mEq/L (3.5-5.1); Protein, Total 6.9 g/dL (6.4-8.2)
--- NOTE | 2024-06-30 12:28 | P.PN ---
Subjective Date of Service: 06/30/24 Chief Complaint: R pleural effusion Subjective: Improving (Is improving shortness of breath has improved post Pleurx catheter) Review of Systems General: Weakness Respiratory: Shortness of Breath Physical Examination - Vital Signs Temperature: 97.9 F Blood Pressure: 131/83 Pulse: 73 Respirations: 16 Pulse Ox (%): 93 - Physical Exam General: Alert, Oriented x3 Neck: Supple Respiratory: Diminished (Condition on the right side) Assessment And Plan - Current Problems (Diagnosis) (1) Pleural effusion Current Visit: Yes Status: Acute Plan: Patient is 84 years of age has metastatic disease with presumed malignant pleural effusion a little better chest x-ray reviewed patient has a Pleurx catheter body fluid chemistries are pending plan to also scheduled for a liver biopsy members present and they agree labs chemistries reviewed plan to discharge after the liver biopsy on Friday
[2024-06-30] MEDS: POTASSIUM CL SA 10 MEQ TAB PO ONE (12:41)
[2024-06-30 14:50] LABS: Appearance SLT. TURBID (CLEAR); Body Fluid Source PLEURAL; Color of fluid Yellow (COLORLESS); Tube # SINGLE
[2024-06-30 15:08] LABS: Body Fluid WBC 42 /mm^3
[2024-06-30 15:09] LABS: Fluid Total Cells Count 100
--- NOTE | 2024-06-30 15:21 | P.PN ---
Subjective Date of Service: 06/30/24 Chief Complaint: R pleural effusion Patient reports right hip pain only with walking. She was able to ambulate to the bathroom without assistance today. She denies any loss of appetite. She is eating well. Patient is tolerating room air. Patient denies any chest pain or cough. No recorded fever. Physical Examination - Vital Signs Temperature: 97.9 F Blood Pressure: 131/83 Pulse: 73 Respirations: 16 Pulse Ox (%): 93 Assessment And Plan - Plan Physical examination General: Alert and oriented x3, NAD, HEENT: Anicteric sclera Neck: Supple, no elevated JVD Heart: Heart sounds 1 and 2 normal, regular rhythm, normal rate, no pedal edema Lungs: Bilateral crackles, diminished breath sounds on the left, no rhonchi. Right Pleurx catheter in place. Abdomen: Soft, nondistended, nontender, normal bowel sounds. Extremities: No tenderness, no deformity Skin: Normal skin turgor, no rash, no nodules or ulcers. Neuro: No focal motor deficit. Normal speech. Psychiatry: Normal mood, no agitation. 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 Origin of cancer is unknown. Pleural fluid cytology, cell count and biochemistry are pending. Analgesics as needed Diet as tolerated. Goals of care discussed. Patient wants to proceed with tissue diagnosis. US guided liver biopsy ordered. Radiology plan to perform it om 07/01 Left hip pain Bony metastasis Analgesics as needed. Hypertension Blood pressure normalized Continue home antihypertensives. Hydralazine as needed. DVT prophylaxis: Lovenox. Advance directive: Full code.
[2024-06-30 17:39] LABS: Body Fluid Lymphocytes 68 %
[2024-07-01 07:07] LABS: Absolute Eosinophils 0.2 K/uL (0-0.5); Absolute Lymphocytes (CBC) 2.1 K/uL (0.7-4.9); Absolute Monocytes 0.7 K/uL (0.1-1.3); Absolute Neutrophil 5.6 K/uL (1.8-8.0); Basophils % 0.5 % (0-1.3); Eosinophils % 2.6 % (0-4.4); Hematocrit 36.9 % (36.0-45.0); Hemoglobin 12.5 g/dL (12.0-15.0); Lymphocytes % 24.4 % (15.3-44.8); MCH 32.6 pg (27.0-35.0); MPV 7.1 fL (7.6-11.3); Monocytes % 7.7 % (3.3-12.3); Neutrophils % 64.8 % (41.7-73.7); Nucleated Red Blood Cells % 0.1 % (0-0); Platelets 393 thou/uL (152-406); RBC Red Blood Cell Count 3.84 M/uL (3.86-4.86); Red Cell Distribution Width 13.4 % (12.1-15.2)
[2024-07-01 07:16] LABS: Albumin 2.9 g/dL (3.4-5.0); Albumin/Globulin Ratio 0.8 (1.1-1.8); Anion Gap 7.9 mEq/L (5.0-15.0); Bilirubin Total 0.5 mg/dL (0.2-1.0); Globulin 3.7 g/dL (2.3-3.5); Potassium 3.9 mEq/L (3.5-5.1); Protein, Total 6.6 g/dL (6.4-8.2)
--- NOTE | 2024-07-01 08:48 | RAD REPORT ---
EXAMINATION: ONE VIEW CHEST XR CLINICAL INDICATION: Female, 84 years old.,Pleural effusion TECHNIQUE: Frontal chest projection is submitted. Examination is limited by patient positioning and t echnique. COMPARISON: 06/30/2024 FINDINGS: Layering large right pleural effusion, stable with stable residual aeration in the upper lung. Left l christina is clear. Pleural drainage catheter unchanged in position. The heart is normal in size. Mediastinal contours are unremarkable. IMPRESSION: Stable findings as above.
[2024-07-01] MEDS: POTASSIUM CL SA 10 MEQ TAB PO ONE (09:10)
--- NOTE | 2024-07-01 13:20 | OP ---
Date of Procedure: 06/29/2024 Surgeon: Jurgen Hernandez MD, Preoperative Diagnosis: Right pleural effusion. Postoperative Diagnosis: Right pleural effusion. Procedure Performed: Placement of a right PleurX tunneled thoracic catheter. Anesthesia: General endotracheal plus local with 1% lidocaine. Estimated Blood Loss: Less than 1 cc. Specimen: Straw-colored fluid from the pleural cavity. Findings: Approximately 1.1 L removed straw-colored fluid from the right thoracic cavity. Complications: None. Drains: PleurX catheter. Disposition: The patient transferred to recovery room in good condition. Procedure In Detail: After informed consent was obtained, patient was brought to the operating room, prepped and draped in the usual sterile fashion. After adequate anesthesia was achieved, I anesthet ized an area of the fifth and sixth intercostal space on the lateral chest wall between mid anterior axillary line ultimately down through subcutaneous tissues and going overlying the rib. I anesthetiz ed the tract. At this point, I inserted the finder needle into the chest cavity. Immediately encoun tered was straw-colored fluid. The introducer sheath was left in place. At this point, the standard wire was advanced at this point with the introducer sheath being removed. At this point, I found a region on the chest wall anterior and inferior from the insertion site, anesthetized this tract, made an incision and ultimately brought in the catheter using the tunneling device at this site. I then performed sequential dilatation using Seldinger technique, ultimately placed the catheter into the ch est cavity without incident or complication. Straw-colored fluid was removed after the introducer sh eath was removed and approximately 1.1 L was removed at this time and sent off for pathologic examina tion. At this point, sterile dressing was then applied and a single interrupted 3-0 nylon suture was placed at the introduction site. The patient tolerated the procedure without incident or complicati on and transferred to PACU in good condition. All counts were correct at the end of the case. TK/MODL Voice ID: [id number] Report ID: [id number]
--- NOTE | 2024-07-01 17:52 | P.PN ---
Subjective Date of Service: 07/01/24 Chief Complaint: R pleural effusion Patient reports right hip pain only with walking. She also reports pleuritic chest pain and shortness of breath with talking She denies any loss of appetite. She is eating well. Patient is tolerating room air. No recorded fever. Physical Examination - Vital Signs Temperature: 98.8 F Blood Pressure: 152/81 Pulse: 76 Respirations: 20 Pulse Ox (%): 96 Assessment And Plan - Plan Physical examination General: Alert and oriented x3, NAD, HEENT: Anicteric sclera Neck: Supple, no elevated JVD Heart: Heart sounds 1 and 2 normal, regular rhythm, normal rate, no pedal edema Lungs: Bilateral crackles, diminished breath sounds on the left, no rhonchi. Right Pleurx catheter in place. Abdomen: Soft, nondistended, nontender, normal bowel sounds. Extremities: No tenderness, no deformity Skin: Normal skin turgor, no rash, no nodules or ulcers. Neuro: No focal motor deficit. Normal speech. Psychiatry: Normal mood, no agitation. 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 Origin of cancer is unknown. Pleural fluid cytology and biochemistry are still pending. Pleural fluid cell counts does not suggest infection. Analgesics as needed Diet as tolerated. Patient plan for liver biopsy in a.m.(07/02) Left hip pain Bony metastasis Analgesics as needed. Hypertension Continue home antihypertensives. Hydralazine as needed. DVT prophylaxis: Lovenox. Advance directive: Full code.
[2024-07-01] MEDS: HYDROCODONE/APAP 5/325 MG TAB PO PRN (23:23)
[2024-07-02 07:36] LABS: Albumin 2.4 g/dL (3.4-5.0); Albumin/Globulin Ratio 0.7 (1.1-1.8); Bilirubin Total 0.4 mg/dL (0.2-1.0); Globulin 3.3 g/dL (2.3-3.5); Protein, Total 5.7 g/dL (6.4-8.2)
[2024-07-02 07:41] LABS: Absolute Eosinophils 0.3 K/uL (0-0.5); Absolute Lymphocytes (CBC) 2.1 K/uL (0.7-4.9); Absolute Monocytes 0.6 K/uL (0.1-1.3); Absolute Neutrophil 4.4 K/uL (1.8-8.0); Basophils % 0.4 % (0-1.3); Eosinophils % 3.5 % (0-4.4); Hemoglobin 10.9 g/dL (12.0-15.0); Lymphocytes % 28.7 % (15.3-44.8); MCH 32.5 pg (27.0-35.0); MCHC 34.1 g/dL (32.0-36.0); MCV 95.3 fL (80-100); Monocytes % 7.7 % (3.3-12.3); Neutrophils % 59.7 % (41.7-73.7); Nucleated Red Blood Cells % 0.1 % (0-0); Platelets 346 thou/uL (152-406); RBC Red Blood Cell Count 3.36 M/uL (3.86-4.86); Red Cell Distribution Width 13.6 % (12.1-15.2)
[2024-07-02] MEDS: MIDAZOLAM HCL 2 MG/2 ML INJ ONE (09:50)
[2024-07-02] MEDS: FLUMAZENIL 0.1 MG/ML (5 mL VIAL) IV ONE (09:50)
[2024-07-02] MEDS: FENTANYL CITR 100 MCG/2 ML ONE (09:51)
[2024-07-02] MEDS: NALOXONE HCL 2 MG/2 ML VIAL ONE (09:51)
[2024-07-02] MEDS: NA CHLORIDE 0.9% 1,000 ML ONE (10:11)
--- NOTE | 2024-07-02 11:42 | RAD REPORT ---
EXAMINATION: Liver Biopsy Perc CT INDICATION: LIVER MASSES Pre-procedure diagnosis: Liver masses Post-procedure diagnosis: Same as above. COMPLICATIONS: No immediate complications. PROCEDURE DETAILS: Consent: Informed consent for the procedure was obtained following discussion of the risks, benefits and alternatives with the patient. Time-out was performed prior to the procedure. Sedation: Moderate sedation (conscious sedation) Administered by: Nurse, or other independent traine d observer, with level of consciousness and vital signs continuously monitored. Total sedation administered: 1 mL Versed and 50 mcg Fentanyl. Total intra-service sedation time: 45 minutes. Biopsy: The area was prepped and draped in the usual sterile fashion. Initial scanning revealed sever al hepatic lesions.. Local anesthesia was administered. Under CT guidance, an 18 gauge biopsy needle was advanced to the target lesion in the left lobe and biopsy was performed. Number of specimens/passes: 4 Additional sampling description: None. Preliminary assessment of sample adequacy: Adequate The biopsy needle was removed and a sterile dressing was applied. Post-biopsy imaging findings: No immediate complications seen. Estimated blood loss: Less than 10 mL. IMPRESSION: Technically successful CT-guided biopsy of liver mass.
--- NOTE | 2024-07-02 18:48 | P.PN ---
Subjective Date of Service: 07/02/24 Chief Complaint: R pleural effusion Patient reports no new complaint. Status post liver biopsy today. She is eating well. Patient is tolerating room air. No recorded fever. Physical Examination - Vital Signs Temperature: 98.1 F Blood Pressure: 121/63 Pulse: 63 Respirations: 18 Pulse Ox (%): 93 Assessment And Plan - Plan Physical examination General: Alert and oriented x3, NAD, Neck: Supple, no elevated JVD Heart: Heart sounds 1 and 2 normal, regular rhythm, normal rate, no pedal edema Lungs: Bilateral crackles, diminished breath sounds on the left, no rhonchi. Right posterior chest Pleurx catheter in place Abdomen: Soft, nondistended, nontender, normal bowel sounds. Extremities: No tenderness, no deformity Neuro: No focal motor deficit. Psychiatry: Normal mood, no agitation. 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 Origin of cancer is unknown. Pleural fluid cytology shows malignant cells. Repeat chest x-ray shows some fluid recollection. Draining pleural fluid via Pleurx catheter prior to discharge. Status post liver biopsy. Follow-up pathology result as an outpatient. Analgesics as needed Diet as tolerated. Anticipating discharge in a.m. with home health for Pleurx catheter drainage. Left hip pain Bony metastasis Analgesics as needed. Hypertension Continue home antihypertensives. Hydralazine as needed. DVT prophylaxis: Lovenox. Advance directive: Full code.
[2024-07-03 04:38] VITALS: O2SAT 91
[2024-07-03 06:36] LABS: Absolute Eosinophils 0.2 K/uL (0-0.5); Absolute Lymphocytes (CBC) 1.7 K/uL (0.7-4.9); Absolute Monocytes 0.7 K/uL (0.1-1.3); Absolute Neutrophil 5.2 K/uL (1.8-8.0); Basophils % 0.5 % (0-1.3); Hematocrit 36.9 % (36.0-45.0); Hemoglobin 12.5 g/dL (12.0-15.0); Lymphocytes % 21.6 % (15.3-44.8); MCH 32.3 pg (27.0-35.0); MCHC 33.9 g/dL (32.0-36.0); MCV 95.3 fL (80-100); MPV 6.8 fL (7.6-11.3); Monocytes % 8.5 % (3.3-12.3); Neutrophils % 66.4 % (41.7-73.7); Platelets 376 thou/uL (152-406); RBC Red Blood Cell Count 3.87 M/uL (3.86-4.86); Red Cell Distribution Width 13.6 % (12.1-15.2)
[2024-07-03 06:40] LABS: Anion Gap 9.1 mEq/L (5.0-15.0); Potassium 4.1 mEq/L (3.5-5.1)
--- NOTE | 2024-07-03 12:05 | P.DS ---
Admission Date: 06/28/24 Discharge Date: 07/03/24 Disposition: DC HOME/HOME HEALTH CARE Discharge Condition: GOOD Reason for Admission: R pleural effusion Brief History of Present Illness: Patient presented to the ED with 2 days of shortness of breath, and 3-4 days of left hip pain. There is a report of 40 lbs weight loss over the past 6 months. Workup in ED with imaging concerning for metastatic cancer, unknown primary. Significantly large R sided pleural effusion, mediastinal mass, masses/lesions in lower thoracic spine, liver, left iliac crest/acetabulum. ER spoke with general surgeon, Dr. Hernandez who recommended pleurx catheter placement. She reports shortness of breath with activity. Pain at left hip with movement. Patient was admitted for further management. 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 Hernandez. Status post Pleurx catheter placement. Origin of cancer is unknown. Pleural fluid cytology shows malignant cells. Serial chest x-ray showed some fluid recollection. Pleural fluid drained via Pleurx catheter. Patient to drain the Pleurx catheter twice a week. Not more than 1 L per drain. Patient informed. Status post liver biopsy. Follow-up pathology result as an outpatient. Analgesics as needed Diet as tolerated. Patient has not yet decided whether to pursue cancer treatment or hospice. He is discharged with home health to help with Pleurx catheter drainage. Patient to follow-up with Dr. Hornre as outpatient regarding liver biopsy result and cancer treatment if patient want to pursue treatment. Left hip pain Bony metastasis Managed with [facility] and IV morphine as needed. Patient discharged with Percocet as needed for pain Hypertension Continued home antihypertensives. Vital Signs/Physical Exam: Temp Pulse Resp BP Pulse Ox 98.2 F 81 15 135/83 95 07/03/24 08:00 07/03/24 08:36 07/03/24 08:00 07/03/24 08:36 07/03/24 08:00 General: Alert, In no apparent distress, Oriented x3 HEENT: Mucous membr. moist/pink Neck: Supple, JVD not distended Respiratory: Diminished (On the right) Cardiovascular: No edema, Regular rate/rhythm, Normal S1 S2 Gastrointestinal: Normal bowel sounds, Soft and benign, Non-distended, No tenderness Musculoskeletal: No swelling Integumentary: No rashes, No cyanosis Neurological: Normal strength at 5/5 x4 extr Laboratory Data at Discharge: WBC 7.90 thou/uL (4.3-10.9) 07/03/24 05:40 Hgb 12.5 g/dL (12.0-15.0) D 07/03/24 05:40 Hct 36.9 % (36.0-45.0) 07/03/24 05:40 Plt Count 376 thou/uL (152-406) 07/03/24 05:40 PT 12.8 SECONDS (9.4-12.5) H 06/29/24 05:51 INR 1.15 06/29/24 05:51 APTT 32.3 SECONDS (24.3-36.9) 06/29/24 05:51 Sodium 140 mEq/L (136-145) 07/03/24 05:40 Potassium 4.1 mEq/L (3.5-5.1) 07/03/24 05:40 BUN 22 mg/dL (7-18) H 07/03/24 05:40 Creatinine 0.85 mg/dL (0.55-1.02) 07/03/24 05:40 Glucose 103 mg/dL (74-106) 07/03/24 05:40 Magnesium 2.1 mg/dL (1.6-2.4) 06/28/24 11:52 Total Bilirubin 0.4 mg/dL (0.2-1.0) 07/02/24 06:00 AST 18 U/L (15-37) 07/02/24 06:00 ALT 20 U/L (13-56) 07/02/24 06:00 Alkaline Phosphatase 72 U/L (45-117) 07/02/24 06:00 Home Medications: Diclofenac Potassium [Lofena] 50 mg PO TID 06/28/24 Hydrochlorothiazide 25 mg PO DAILY 06/28/24 Latanoprost Ophth [Xalatan 0.005%*] 1 drop OPTH BEDTIME 06/28/24 Losartan Potassium [Cozaar] 100 mg PO DAILY 06/28/24 Vit A/Vit C/Vit E/Zinc/Copper [Preservision Areds Softgel] 1 cap PO BID 06/28/24 dilTIAZem HCL [Diltiazem 24Hr ER] 1 cap PO DAILY 06/28/24 Amox/Clavulanate [Augmentin 875-125 Tab] 1 each PO BID #14 tab 07/03/24 Benzonatate 100 mg PO TID PRN #30 cap 07/03/24 Guaifenesin [Cough Syrup] 10 ml PO Q6H PRN #237 ml 07/03/24 Oxycodone HCl/Acetaminophen [Percocet 5/325 Tab] 1 tab PO Q4H PRN #20 tab 07/03/24 New Medications: Amox/Clavulanate [Augmentin 875-125 Tab] 1 each PO BID #14 tab Benzonatate 100 mg PO TID PRN #30 cap PRN Reason: Cough Guaifenesin [Cough Syrup] 10 ml PO Q6H PRN #237 ml PRN Reason: Cough Oxycodone HCl/Acetaminophen [Percocet 5/325 Tab] 1 tab PO Q4H PRN #20 tab PRN Reason: Pain Physician Discharge Instructions: [facility] [employer] Call Karrie Renee MA at [phone] for questions or concerns after discharge. Expect a call within 1-2 business days of discharge. Diet: Regular Activity: Ad jolene Followup: Kizzy Valdez NP [Primary Care Provider] - Jurgen Hernandez MD [ACTIVE - CAN ADMIT] - Lenore Horner MD [ACTIVE - CAN ADMIT] - 1 Week Time spent managing pt's care (in minutes): 42
--- NOTE | 2024-07-05 11:09 | EKG ---
Test Date: 2024-06-28 Test Time: 11:57:45 Consulting Group Analyst: Mtizi GRIMALDO MEASUREMENT RESULTS: Intervals: Rate: 93 NE: 154 QRSD: 90 QT: 342 QTc: 425 [place]: P: 94 NE: 154 QRS: 82 T: 72 INTERPRETIVE STATEMENTS: Normal sinus rhythm Low voltage QRS Borderline ECG Compared to ECG 04/18/2015 11:35:57 Low QRS voltage now present Electronically Signed On 07-05-24 10:59:45 TEARER by Carlos Burrows
[2024-07-06 15:10] VITALS: BP 135/80
[2024-07-06 15:14] VITALS: TEMP 97.7
== END 2024-07-03 13:48 | disposition home health service (06) | DRG 436 ==
LOC: ER 11:12 → ERHOLD 15:48 → 4TH 16:52
PROVIDERS: ADMIT Hospitalist; ATTEND Internal Medicine
PROC: 0W9930Z Drainage of Right Pleural Cavity with Drainage Device, Percutaneous Approach (ICD-10-PCS; principal; 2024-06-29 11:45)
PROC: 0FB03ZX Excision of Liver, Percutaneous Approach, Diagnostic (ICD-10-PCS; 2024-07-02)
DX: C78.7 Secondary malignant neoplasm of liver and intrahepatic bile duct (principal); C78.1 Secondary malignant neoplasm of mediastinum; C79.51 Secondary malignant neoplasm of bone; J91.0 Malignant pleural effusion; I10 Essential (primary) hypertension; C80.1 Malignant (primary) neoplasm, unspecified; M89.8X8 Other specified disorders of bone, other site; Z87.891 Personal history of nicotine dependence; Z79.899 Other long term (current) drug therapy
CPT/HCPCS: 36415; 47000; 71045; 71275; 72192; 76705; 80048; 80053; 80076; 82945; 83615; 83735; 83880; 84157; 84484; 85025; 85379; 85610; 85730; 87070; 88108; 88305; 88307; 89050; 93005; 93970; 99285; J0360; J0690; J1100; J1650; J2003; J2250; J2310; J2405; J2704; J3010; J7030; J7120; Q9967